=== PATIENT | male | born 1945 | race Caucasian/White ===

== ENCOUNTER 2023-07-05 15:07 | Outpatient (RCR) | payer MEDICARE, OTHER, SELFPAY | END 2023-07-05 23:59 | disposition home or self-care (01) | LOC: RPT 15:07 | PROVIDERS: ATTENDING PHYSICIAN Specialist; FAMILY PHYSICIAN Internal Medicine | DX: Z47.1 Aftercare following joint replacement surgery (principal); Z96.612 Presence of left artificial shoulder joint; Z96.611 Presence of right artificial shoulder joint; Z73.6 Limitation of activities due to disability | CPT/HCPCS: 97010; 97110; 97140; 97162 ==

== ENCOUNTER 2023-08-13 08:54 | Outpatient (RCR) | payer MEDICARE, OTHER, SELFPAY | END 2023-08-13 23:59 | disposition home or self-care (01) | LOC: RPT 08:54 | PROVIDERS: ATTENDING PHYSICIAN Specialist; FAMILY PHYSICIAN Internal Medicine | DX: Z47.1 Aftercare following joint replacement surgery (principal); Z96.612 Presence of left artificial shoulder joint; Z96.611 Presence of right artificial shoulder joint | CPT/HCPCS: 97010; 97110; 97140 ==

== ENCOUNTER 2023-09-11 08:52 | Outpatient (RCR) | payer MEDICARE, OTHER, SELFPAY | END 2023-09-11 23:59 | disposition home or self-care (01) | LOC: RPT 08:52 | PROVIDERS: ATTENDING PHYSICIAN Specialist; FAMILY PHYSICIAN Internal Medicine | DX: Z47.1 Aftercare following joint replacement surgery (principal); Z96.612 Presence of left artificial shoulder joint; Z96.611 Presence of right artificial shoulder joint; Z73.6 Limitation of activities due to disability | CPT/HCPCS: 97010; 97110; 97140 ==

== ENCOUNTER 2023-09-19 08:49 | Outpatient (RCR) | payer MEDICARE, OTHER, SELFPAY | END 2023-09-19 23:59 | disposition home or self-care (01) | LOC: RPT 08:49 | PROVIDERS: ATTENDING PHYSICIAN Specialist; FAMILY PHYSICIAN Internal Medicine | DX: Z47.1 Aftercare following joint replacement surgery (principal); Z73.6 Limitation of activities due to disability; M62.81 Muscle weakness (generalized); Z96.612 Presence of left artificial shoulder joint; Z96.611 Presence of right artificial shoulder joint | CPT/HCPCS: 97110 ==

== ENCOUNTER → 2023-09-27 13:52 | Outpatient (REF) | payer MEDICARE, OTHER, SELFPAY | LOC: PAVMRI 13:52 | PROVIDERS: ATTENDING PHYSICIAN Physical Medicine & Rehabilitation; FAMILY PHYSICIAN Internal Medicine | DX: M54.16 Radiculopathy, lumbar region (principal) | CPT/HCPCS: 72148 ==

== ENCOUNTER → 2023-12-18 10:48 | Outpatient (REF) | payer MEDICARE, OTHER, SELFPAY | LOC: HWRAD 10:48 | PROVIDERS: ATTENDING PHYSICIAN Internal Medicine; REFERRING PHYSICIAN Specialist | DX: M06.9 Rheumatoid arthritis, unspecified (principal); M81.0 Age-related osteoporosis without current pathological fracture | CPT/HCPCS: 77080 ==

== ENCOUNTER → 2024-01-16 09:45 | Outpatient (REF) | payer MEDICARE, OTHER, SELFPAY ==
[2024-01-16 12:11] LABS: % Basophils 0.8 % (0-2); % Eosinophils 3.6 % (0-6); % Immature Granulocytes 0.2 % (0-0.5); % Lymphocytes 36.5 % (20.5-51.1); % Monocytes 13.1 % (1.7-9.3); % Neutrophils 45.8 % (42.2-75.2); Absolute Eosinophils 0.2 10^3/uL (0-0.7); Absolute Lymphocytes 1.7 10^3/uL (1.2-3.4); Absolute Monocytes 0.6 10^3/uL (0.1-0.6); Absolute Neutrophils 2.2 10^3/uL (1.4-6.5); Hematocrit 47.6 % (39.0-52.0); Hemoglobin 16.7 g/dL (13.0-18.0); Mean Corp Hgb Conc. 35.1 g/dL (33.0-37.0); Mean Corpuscular Hgb 34.4 pg (27.0-31.0); Mean Corpuscular Volume 98.1 fL (80.0-94.0); Nucleated Red Blood Cells % 0 % (-); Platelet Count 178 10^3/uL (130-400); Red Blood Cell Count 4.85 10^6/uL (4.70-6.10); White Blood Cell Count 4.7 10^3/uL (4.8-10.8)
[2024-01-16 12:14] LABS: Urine Albumin Negative (Neg - Trace); Urine Bilirubin Negative (Negative); Urine Character Clear (Clear); Urine Color Yellow; Urine Glucose Negative (Negative); Urine Ketone Negative (Negative); Urine Leukocyte Negative (Negative); Urine Nitrite Negative (Negative); Urine Occult Blood Negative (Negative); Urine Specific Gravity 1.025 (<1.030); Urine Urobilinogen Negative (Neg - 1+)
[2024-01-16 12:26] LABS: ALT (SGPT) 79 U/L (0-50); AST (SGOT) 68 U/L (17-59); Albumin 4.4 g/dl (3.5-5.0); Alkaline Phosphatase 175 U/L (38-126); Blood Urea Nitrogen 14 mg/dl (9-20); Calcium 10.2 mg/dl (8.4-10.2); Carbon Dioxide 27 mmol/L (22-30); Chloride 105 mmol/L (98-107); Glucose 125 mg/dl (70-99); HDL Cholesterol 44 mg/dl; LDL Cholesterol, Calculated 88 mg/dl; Potassium 4.6 mmol/L (3.5-5.1); Sodium 140 mmol/L (135-145); Total Bilirubin 0.6 mg/dl (0.2-1.3); Total Cholesterol 162 mg/dl (50-199); Total Protein 7.1 g/dl (6.3-8.2); Triglyceride 150 mg/dl (10-149); Very Low Density Lipoprotein 30 mg/dl (0-30); eGFR > 60.00
[2024-01-16 12:29] LABS: C-Reactive Protein < 5.00 mg/L (0.0-10.00)
[2024-01-16 12:45] LABS: Prolactin 13.6 ng/ml (3.7-17.9)
[2024-01-16 12:59] LABS: TSH 3.24 uIU/ml (0.47-4.68)
[2024-01-16 14:11] LABS: Erythrocyte Sed Rate 8 mm/hour (0-20)
[2024-01-17 18:26] LABS: % Free Testosterone 1.5 % (1.6-2.9); Free Testosterone 51 pg/mL (47-244); Sex Hormone Binding Globulin 47 nmol/L (19-76); Total Testosterone 345 ng/dL (300-720)
== END ==
LOC: HWLAB 09:45
PROVIDERS: ATTENDING PHYSICIAN Internal Medicine
DX: I10 Essential (primary) hypertension (principal); M06.9 Rheumatoid arthritis, unspecified; E78.2 Mixed hyperlipidemia; N52.1 Erectile dysfunction due to diseases classified elsewhere; N40.1 Benign prostatic hyperplasia with lower urinary tract symptoms
CPT/HCPCS: 36415; 80053; 80061; 81003; 84146; 84270; 84402; 84403; 84443; 85025; 85652; 86140

== ENCOUNTER → 2024-01-23 11:17 | Outpatient (REF) | payer MEDICARE, OTHER, SELFPAY | LOC: HWLAB 11:17 | PROVIDERS: ATTENDING PHYSICIAN Internal Medicine | DX: N40.1 Benign prostatic hyperplasia with lower urinary tract symptoms (principal) | CPT/HCPCS: 36415; 84153 ==

== ENCOUNTER → 2024-06-06 11:09 | Outpatient (REF) | payer MEDICARE, OTHER, SELFPAY | LOC: HWRAD 11:09 | PROVIDERS: ATTENDING PHYSICIAN Internal Medicine; REFERRING PHYSICIAN Internal Medicine Critical Care Medicine | DX: J20.9 Acute bronchitis, unspecified (principal) | CPT/HCPCS: 71046 ==

== ENCOUNTER → 2024-06-19 11:36 | Outpatient (REF) | payer MEDICARE, OTHER, SELFPAY | LOC: HWRAD 11:36 | PROVIDERS: ATTENDING PHYSICIAN Internal Medicine Critical Care Medicine; FAMILY PHYSICIAN Internal Medicine | DX: R91.1 Solitary pulmonary nodule (principal) | CPT/HCPCS: 71250 ==

== ENCOUNTER → 2024-07-29 11:11 | Outpatient (REF) | payer MEDICARE, OTHER, SELFPAY ==
[2024-07-29 15:37] LABS: % Basophils 0.4 % (0-2); % Eosinophils 2.5 % (0-6); % Immature Granulocytes 0.2 % (0-0.5); % Lymphocytes 32.6 % (20.5-51.1); % Monocytes 11.5 % (1.7-9.3); % Neutrophils 52.8 % (42.2-75.2); Absolute Eosinophils 0.1 10^3/uL (0-0.7); Absolute Lymphocytes 1.8 10^3/uL (1.2-3.4); Absolute Monocytes 0.7 10^3/uL (0.1-0.6); Hemoglobin 16.8 g/dL (13.0-18.0); Mean Corp Hgb Conc. 34.3 g/dL (33.0-37.0); Mean Corpuscular Hgb 34.2 pg (27.0-31.0); Mean Corpuscular Volume 99.8 fL (80.0-94.0); Mean Platelet Volume 10.1 fL (7.4-10.4); Nucleated Red Blood Cells % 0 % (-); Platelet Count 161 10^3/uL (130-400); Red Blood Cell Count 4.91 10^6/uL (4.70-6.10); Red Cell Dist. Width 13.1 % (11.5-14.5); White Blood Cell Count 5.7 10^3/uL (4.8-10.8)
[2024-07-29 15:48] LABS: ALT (SGPT) 77 U/L (0-50); AST (SGOT) 63 U/L (17-59); Albumin 4.2 g/dl (3.5-5.0); Alkaline Phosphatase 146 U/L (38-126); Blood Urea Nitrogen 17 mg/dl (9-20); Calcium 9.9 mg/dl (8.4-10.2); Carbon Dioxide 23 mmol/L (22-30); Chloride 103 mmol/L (98-107); Glucose 113 mg/dl (70-99); Potassium 4.3 mmol/L (3.5-5.1); Sodium 136 mmol/L (135-145); Total Bilirubin 1.2 mg/dl (0.2-1.3); Total Protein 7.1 g/dl (6.3-8.2); eGFR > 60.00
[2024-07-29 16:10] LABS: Vitamin D, 25-OH*** 29.3 ng/mL (30-80)
== END ==
LOC: HWLAB 11:11
PROVIDERS: ATTENDING PHYSICIAN Nurse Practitioner Family; FAMILY PHYSICIAN Internal Medicine
DX: R79.89 Other specified abnormal findings of blood chemistry (principal); R74.8 Abnormal levels of other serum enzymes; Z00.00 Encounter for general adult medical examination without abnormal findings; Z71.89 Other specified counseling; E55.9 Vitamin D deficiency, unspecified
CPT/HCPCS: 36415; 80053; 82306; 85025

== ENCOUNTER → 2024-08-12 11:14 | Outpatient (REF) | payer MEDICARE, OTHER, SELFPAY | LOC: HWRAD 11:14 | PROVIDERS: ATTENDING PHYSICIAN Nurse Practitioner Family | DX: R74.8 Abnormal levels of other serum enzymes (principal) | CPT/HCPCS: 76700 ==

== ENCOUNTER 2024-12-04 10:56 | Emergency (ER) | payer MEDICARE, OTHER, SELFPAY ==
[2024-12-04 10:58] VITALS: BP 152/86
--- NOTE | 2024-12-04 12:42 | ED.GENMED ---
History of Present Illness
General
Chief Complaint: Back Pain
Source: patient and spouse
Time Seen by Provider: 12/04/24 12:30
History of Present Illness
History of Present Illness:
This patient is a 79-year-old male presents emergency department with complaints of right-sided back pain. He states that he suffers from intermittent episodes of chronic back pain for which he sees an orthopedic doctor local to the hospital and
received treatment and steroid injections. He also intermittently will apply Voltaren gel to the area with relief of symptoms. He first noted this pain 3 years ago while playing golf. The pain has been manageable with these interventions
otherwise. Sunday, he was swinging the golf club and again noted exacerbation of the pain. He describes it in the right lower back area extending the right buttock and lateral aspect of the right leg. He also has very slight numbness in his
toes. This is very typical of pain that he had in the past. Denies associated abdominal pain, weakness, incontinence, perianal anesthesia, fever, chills, trauma or fall, chest pain, dyspnea, weakness, swelling, redness, warmth, recent injections,
or other complaints. Patient states the pain is much worse with certain movements particularly standing sitting or walking. He is more comfortable laying supine. He describes the pain as 'sharp'.
Past History
Past History
ED Past Medical History: CVA, HTN, Hypercholesterolemia, Other (arthritis, diverticulosis/diverticulitis, hemorrhoids, BPH), Other (Sleep apnea on CPAP) and Other (kidney stones)
ED Past Surgical History: Orthopedic (Hemorrhoidectomy); Negative Appendectomy, Bowel resection, Brain, Cardiac or Cholecystectomy
Social History
Tobacco: Former smoker
Alcohol: Occasional
Drug: None
Personal:
Living: with family
Employment: Retired
Family History
Family History: Hypertension
Phy Exam
Physical Exam
Physical Exam:
GENERAL: Alert , in no apparent distress
EYE: pupils equal and round
NECK: Supple, no significant adenopathy.
ENT: o/p clr, mmm.
CARDIAC: Regular rate and rhythm .
LUNGS: Clear breath sounds bilaterally, no acute respiratory distress, no wheezes/rales/rhonchi
ABDOMEN: Soft, without focal tenderness, no r/g
NEUROLOGICAL: Alert and oriented, no focal neuro deficits, neg slr, 2+ patellar reflex
SKIN: Warm and dry, skin intact.
MUSCULOSKELETAL: No edema, well perfused. 2+ dp/pt pulses, sens intact light touch, motor 5/5. FROM RLE without difficulty or pain, includ hip int/ext rotation.
PSYCH: Normal and appropriate interaction.
BACK: nontender to palpation, no lesions/rash/swelling
Course
Orders/Labs/Results
Orders:
Orders
12/04/24 12:46
Dexamethasone Sod Phosphate [Decadron] 10 mg IV NOW STA
Lidocaine [Lidocaine 4% Patch] 1 patch TOPICAL NOW STA
Apply Lidocaine patch(s) to:: R lower back
diazePAM [Valium Injection] 5 mg IV NOW STA
12/04/24 13:43
Ketorolac [Toradol] 15 mg IV NOW STA
12/04/24 14:22
Morphine Sulfate 4 mg IV NOW STA
Ondansetron Injectable [Zofran] 4 mg IV NOW STA
12/04/24 15:35
Morphine Sulfate 4 mg IV NOW STA
Vital Signs
Initial and Last Documented VS:
Initial Vital Signs
Temp Pulse Resp BP Pulse Ox
97.5 F 73 16 152/86 97
12/04/24 10:58 12/04/24 10:58 12/04/24 10:58 12/04/24 10:58 12/04/24 10:58
Last Documented Vital Signs
Temp Pulse Resp BP Pulse Ox
97.5 F 79 20 149/65 99
12/04/24 10:58 12/04/24 13:00 12/04/24 13:00 12/04/24 13:00 12/04/24 13:00
*Critical Care Note
Total Time (30-74mins, 75-104mins- exclusive of procedures): Not Applicable
Update Note
Update Note:
Patient presents to the Emergency Department with ___back pain
Number and Complexity of Problems Addressed at the Encounter
� Chronic conditions affecting care:
� Acute Exacerbation and/or Progression of Chronic Illness:
� Differential Diagnosis includes: But not limited to sciatica, muscular strain, fracture, AAA, kidney stone, etc.
Amount and/or Complexity of Data to be Reviewed and Analyzed
� I performed an independent evaluation of and my interpretation is:
EKG:
CT:
Xrays:
Laboratory Studies:
Other:
� Review of other/old records reveals:
� Clinical information was obtained by an independent historian: who is bedside
� Prescriptions/Medications Considered but not given:
� Further testing considered but not performed:
Risk of Complications and/or Morbidity or Mortality of Patient Management
� Social determinants of health affecting care:
� Discussion with other providers (PCP, Hospitalists, Consultants, etc):
� Escalation of care including admission/observation vs risk of discharge considered: I highly doubt AAA given history and physical, normal pulses, pain not sudden in onset, pain very characteristic of prior episodes of back
pain, etc. Patient does not offer urinary symptoms, etc. to suggest kidney stone.
ED Attending Note
-
Portions of this chart may have been created with voice recognition software.� Occasional wrong word or��sound alike� substitutions may have occurred due to the inherent limitations of voice recognition software.
Discharge Plan
Departure
Patient Disposition: Home (Routine Discharge)
Date of Disposition: 12/04/24
Time of Disposition: 16:45
Patient with high blood pressure during this ER visit?: Yes
Condition: Good
Discharge Problem:
Back pain
Instructions: Low Back Pain (DC), BLOOD PRESSURE
Prescriptions:
New
oxycodone-acetaminophen [Percocet] 5-325 mg tablet
1 tab PO Q4HPRN PRN (Reason: pain) Qty: 14 0RF
cyclobenzaprine 10 mg tablet
10 mg PO BID PRN (Reason: pain/spasm) Qty: 11 0RF
methylprednisolone [Medrol (Jagjit)] 4 mg tablets,dose pack
See Rx Instructions .ROUTE .COMPLEX Qty: 21 0RF
Rx Instructions:
for 6 days
No Action
finasteride 5 MG tablet
5 mg PO DAILY
tamsulosin 0.4 mg capsule
0.4 mg PO QPM
folic acid 1 mg tablet
1 mg PO DAILY
ramipril 10 mg capsule
10 mg PO DAILY
famotidine [Pepcid] 40 mg Tablet
40 mg PO DAILY
Systane (PF) 0.4-0.3 % Dropperette
1 drp BOTH EYES BID
sennosides [Senokot] 8.6 mg tablet
17.2 mg PO BID Qty: 2 0RF
magnesium hydroxide [Milk of Magnesia] 400 mg/5 mL suspension
30 ml PO HS PRN (Reason: Constipation) Qty: 1 0RF
Patient Comments:
For post op
docusate sodium [Colace] 100 mg capsule
100 mg PO BID Qty: 1 0RF
Patient Comments:
For post op
gabapentin 300 mg capsule
300 mg PO HS Qty: 10 0RF
Saccharomyces boulardii [Florastor] 250 mg capsule
250 mg PO BID Qty: 1 0RF
Patient Comments:
=
oxycodone 5 mg Tablet
5 mg PO Q6HPRN PRN (Reason: MODERATE PAIN) Qty: 10 0RF
aspirin 325 mg tablet
325 mg PO DAILY Qty: 1 0RF
Rx Instructions:
Take with food
acetaminophen [Tylenol] 325 mg capsule
650 mg PO QID Qty: 0 0RF
nitrofurantoin macrocrystal 100 mg capsule
100 mg PO BID Qty: 10 0RF
Referrals:
Orlando Bolden DO [Non-Admitting Privileges] - Follow up in 2-3 days
Ernesto Samayoa DO [Family Provider] -
Activity Restrictions/Additional Instructions:
IF YOU DEVELOP INCREASING OR NEW PAIN, NUMBNESS, TINGLING, INCONTINENCE, FEVER, ABDOMINAL PAIN, WEAKNESS, OR OTHER WORRISOME SIGNS, PLEASE RETURN TO THE ER IMMEDIATELY!
Interventions
Interventions:
*Risk Screen - Suicide Last Done: 12/04/24 10:58
*General Assessment Last Done: 12/04/24 10:58
*Neglect/Abuse Screening Last Done: 12/04/24 10:58
*ED COVID-19 Vaccine History Last Done: 12/04/24 13:00
ED-Musculoskeletal Assessment Last Done: 12/04/24 13:00
Discharge Date and Time
Print Language: CAMEROONIAN
[2024-12-04] MEDS: VALIUM INJECTION 5 MG IV (12:57)
[2024-12-04] MEDS: DECADRON 10 MG IV (12:57)
[2024-12-04] MEDS: LIDOCAINE 4% PATCH 1 PATCH TOPICAL (12:57)
[2024-12-04 13:00] VITALS: BP 149/65
[2024-12-04] MEDS: TORADOL 15 MG IV (13:50)
[2024-12-04] MEDS: ZOFRAN 4 MG IV (14:28)
[2024-12-04] MEDS: MORPHINE SULFATE 4 MG IV ×2 (14:28→15:40)
== END 2024-12-04 17:15 | disposition home or self-care (01) ==
LOC: EMR 10:56
PROVIDERS: EMERGENCY PHYSICIAN Emergency Medicine; FAMILY PHYSICIAN Internal Medicine
DX: M54.9 Dorsalgia, unspecified (principal); I10 Essential (primary) hypertension; Z87.891 Personal history of nicotine dependence
CPT/HCPCS: 99284; 96374; 96375 ×3; 96376

== ENCOUNTER 2025-02-10 12:55 | Outpatient (RCR) | payer MEDICARE, OTHER, SELFPAY | END 2025-02-10 23:59 | disposition home or self-care (01) | LOC: RPT 12:55 | PROVIDERS: ATTENDING PHYSICIAN Physician Assistant; FAMILY PHYSICIAN Internal Medicine | DX: M54.16 Radiculopathy, lumbar region (principal); Z73.6 Limitation of activities due to disability | CPT/HCPCS: 97010; 97110; 97112; 97140; 97161 ==

== ENCOUNTER 2025-02-19 14:18 | Outpatient (RCR) | payer MEDICARE, OTHER, SELFPAY | END 2025-02-19 14:48 | disposition home or self-care (01) | LOC: RPT 14:18 | PROVIDERS: ATTENDING PHYSICIAN Physician Assistant; FAMILY PHYSICIAN Internal Medicine | DX: M54.16 Radiculopathy, lumbar region (principal); Z73.6 Limitation of activities due to disability | CPT/HCPCS: 97110; 97112; 97140 ==

== ENCOUNTER → 2025-04-20 12:33 | Outpatient (REF) | payer MEDICARE, OTHER, SELFPAY | LOC: HWRAD 12:33 | PROVIDERS: ATTENDING PHYSICIAN Internal Medicine Critical Care Medicine; FAMILY PHYSICIAN Internal Medicine | DX: R91.1 Solitary pulmonary nodule (principal); J44.9 Chronic obstructive pulmonary disease, unspecified; Z87.891 Personal history of nicotine dependence | CPT/HCPCS: 71250 ==